=== PATIENT | female | born 1965 | race Caucasian/White ===

== ENCOUNTER → 2018-01-23 | Outpatient (CLI) | payer OTHER ==
--- NOTE | 2018-01-23 12:44 | RADIOLOGY REPORT (SQ) ---
EXAM DESCRIPTION: SHOULDER LEFT 2 OR MORE VIEWS COMPLETED DATE/TIME: 01/23/2018 12:34 pm REASON FOR STUDY: PAIN OF LEFT SHOULDER JOINT ON MOVEMENT COMPARISON: None. NUMBER OF VIEWS: Two views TECHNIQUE: AP and Y view images acquired of the left shoulder. LIMITATIONS: None. FINDINGS: MINERALIZATION: Normal. BONES: No acute fracture or dislocation. No worrisome bone lesions. JOINTS: No dislocation. VISUALIZED LUNGS AND RIBS: No pneumothorax. No rib fracture. SOFT TISSUES: No radiopaque foreign body. OTHER: No other significant finding. IMPRESSION: NEGATIVE STUDY OF THE LEFT SHOULDER. NO RADIOGRAPHIC EVIDENCE OF ACUTE INJURY. TECHNICAL DOCUMENTATION: JOB ID: [id number] [employer]- All Rights Reserved Reading location - IP/workstation name: [email or web address]
== END ==
LOC: OD 12:18
PROVIDERS: ATTEND Family Medicine
DX: M25.512 Pain in left shoulder (principal)

== ENCOUNTER 2018-03-15 16:40 | Emergency (ER) | payer OTHER ==
--- NOTE | 2018-03-15 17:05 | RADIOLOGY REPORT (SQ) ---
EXAM DESCRIPTION: FINGER RIGHT COMPLETED DATE/TIME: 03/15/2018 4:53 pm REASON FOR STUDY: finger injury COMPARISON: None. NUMBER OF VIEWS: Three views. TECHNIQUE: AP, lateral, and oblique images acquired of the right fifth finger. LIMITATIONS: None. FINDINGS: MINERALIZATION: Normal. BONES: PIP dislocation. Middle phalanx dorsal to the proximal phalanx. No obvious fracture. SOFT TISSUES: No soft tissue swelling. No foreign body. OTHER: No other significant finding. IMPRESSION: 5th digit PIP dislocation. COMMENT: SITE OF TRAUMA/COMPLAINT MARKED/STAMP COMPLETED: YES. TECHNICAL DOCUMENTATION: JOB ID: [id number] [employer]- All Rights Reserved Reading location - IP/workstation name: [email or web address]
--- NOTE | 2018-03-15 17:44 | ER Document Report ---
HPI - HPI Patient complains to provider of: right finger pain Time Seen by Provider: 03/15/18 17:36 Onset: This afternoon Onset/Duration: Sudden, Persistent Quality of pain: No pain - Numb Pain Level: 3 Context: Patient presents emergency department with complaints of right finger dislocation. Patient reports she was walking looking at her cell phone when she tripped and fell on her finger. She reports the finger is numb. Reports never happened before. No other complaints such as fever nausea vomiting diarrhea. Associated Symptoms: None Exacerbated by: Denies Relieved by: Denies Similar symptoms previously: No Recently seen / treated by doctor: No Past Medical History - General Information source: Patient - Social History Smoking Status: Unknown if Ever Smoked Cigarette use (# per day): No Frequency of alcohol use: Social Drug Abuse: None Occupation: unemployed Lives with: Family Family History: None Patient has suicidal ideation: No Patient has homicidal ideation: No - Past Medical History Cardiac Medical History: Reports: Hx Coronary Artery Disease Endocrine Medical History: Reports: Hx Hypothyroidism Malignancy Medical History: Reports: Other - hodgkins lymphoma Past Surgical History: Reports: Hx Cardiac Surgery Vertical Provider Document - CONSTITUTIONAL Agree With Documented VS: Yes Exam Limitations: No Limitations General Appearance: WD/WN, No Apparent Distress - INFECTION CONTROL TRAVEL OUTSIDE OF THE [place] IN LAST 30 DAYS: No - HEENT HEENT: Atraumatic, Normocephalic - NECK Neck: Supple - RESPIRATORY Respiratory: No Respiratory Distress - CARDIOVASCULAR Cardiovascular: Regular Rate - MUSCULOSKELETAL/EXTREMETIES Musculoskeletal/Extremeties: Non-Tender - right 5th finger with dislocation at pip, good cap refill, pt reports numb, no pain - NEURO Level of Consciousness: Awake, Alert, Appropriate - DERM Integumentary: Warm, Dry Course - Re-evaluation Re-evalutation: 03/15/18 18:06 Positive dislocation right fifth PIP patient up dated on plan of care verbalized understanding 03/15/18 19:08 TRADITIONAL WEB SPACE DIGITAL BLOCK COMPLETED 5TH FINGER HYPEREXTENDED, REDUCED , SPLINT PLACED, XRAY ORDED, PT TOLERATED PROCEDURE WELL, GOOD CAP REFILL 03/15/18 19:44 Repeat x-ray shows smaller bony fragments with reduction of dislocation. Patient given copy of x-ray. Finger splint in place. Patient instructed to follow-up with Dr. Solo anna on Sunday. She verbalized understanding tall instructions. - Vital Signs Vital signs: Temp Pulse Resp BP Pulse Ox 97.6 F 70 16 124/68 98 03/15/18 16:44 03/15/18 16:44 03/15/18 16:44 03/15/18 16:44 03/15/18 16:44 - Diagnostic Test Radiology reviewed: Image reviewed, Reports reviewed - EXAM DESCRIPTION: FINGER RIGHT COMPLETED DATE/TIME: 03/15/2018 4:53 pm REASON FOR STUDY: finger injury COMPARISON: None. NUMBER OF VIEWS: Three views. TECHNIQUE: AP, lateral, and oblique images acquired of the right fifth finger. LIMITATIONS: None. FINDINGS: MINERALIZATION: Normal. BONES: PIP dislocation. Middle phalanx dorsal to the proximal phalanx. No obvious fracture. SOFT TISSUES: No soft tissue swelling. No foreign body. OTHER: No other significant finding. IMPRESSION: 5th digit PIP dislocation. Discharge - Discharge Clinical Impression: right 5th finger dislocation Condition: Stable Disposition: HOME, SELF-CARE Instructions: Finger Dislocation ([facility]) Additional Instructions: *You have been evaluated for finger dislocation *Maintain the splint for at least five days *Rest/Ice/Elevate *Follow up with orthopedics Sunday for recheck *Take tylenol or motrin as indicated for pain *Return to ED for worsening condition, changes, needs Referrals: JENNIFER PORTER MD [Primary Care Provider] - Follow up in 1 week SOLO ANNA DO [ACTIVE STAFF] - 03/18/18 (call for appointment)
[2018-03-15] MEDS ORDERED: BUPIVACAINE HCL 0.25 % INJ/PF (2.5 MG/1 ML) 30 ML VIAL INJ ONE (17:52)
[2018-03-15] MEDS ORDERED: LIDOCAINE 1% INJ (10 MG/ML) 10 ML MDV INJ ONE ×2 (18:22→18:27)
[2018-03-15] MEDS ORDERED: BUPIVACAINE HCL 0.5 % INJ/PF 30 ML SDV INJ ONE (18:24)
--- NOTE | 2018-03-15 19:27 | RADIOLOGY REPORT (SQ) ---
EXAM DESCRIPTION: FINGER RIGHT COMPLETED DATE/TIME: 03/15/2018 7:17 pm REASON FOR STUDY: DISLOCATED- REDUCED COMPARISON: Exam earlier the same day NUMBER OF VIEWS: Three views. TECHNIQUE: AP, lateral, and oblique images acquired of the right fifth finger. LIMITATIONS: None. FINDINGS: MINERALIZATION: Normal. BONES: Reduction of the previously noted PIP dislocation. Minimal bony fragments at the level of the joint likely related to microfracture. No large fractures. SOFT TISSUES: No soft tissue swelling. No foreign body. OTHER: No other significant finding. IMPRESSION: Reduction of the previously noted dislocation. Minimal bony fragments in relation to th e joint likely related to smaller avulsions. COMMENT: SITE OF TRAUMA/COMPLAINT MARKED/STAMP COMPLETED: Yes TECHNICAL DOCUMENTATION: JOB ID: [id number] [employer]- All Rights Reserved Reading location - IP/workstation name: [email or web address]
[2018-03-15 19:54] VITALS: BP 114/57
== END 2018-03-15 19:54 | disposition home or self-care (01) ==
LOC: ER 16:40
DX: S63.286A Dislocation of proximal interphalangeal joint of right little finger, initial encounter (principal); W19.XXXA Unspecified fall, initial encounter; Y93.01 Activity, walking, marching and hiking; I25.2 Old myocardial infarction
CPT/HCPCS: 99283

== ENCOUNTER → 2019-10-17 | Outpatient (CLI) | payer OTHER ==
[2019-10-17 09:29] LABS: APPEARANCE,URINE CLEAR; BILIRUBIN,URINE NEGATIVE (NEGATIVE); COLOR,URINE COLORLESS; GLUCOSE, URINE NEGATIVE (NEGATIVE); KETONES,URINE NEGATIVE (NEGATIVE); LEUKOCYTE ESTERASE,URINE NEGATIVE (NEGATIVE); NITRITE,URINE NEGATIVE (NEGATIVE); PROTEIN,URINE NEGATIVE (NEGATIVE); URINE SPECIFIC GRAVITY 1.004; UROBILINOGEN,URINE NEGATIVE mg/dL (<2.0)
[2019-10-17 09:49] LABS: ALBUMIN 4.5 g/dL (3.5-5.0); ALKALINE PHOSPHATASE 92 U/L (38-126); ANION GAP 12 (5-19); ASPARTATE AMINO TRANSFERASE 33 U/L (14-36); BILIRUBIN,TOTAL 0.7 mg/dL (0.2-1.3); BLOOD UREA NITROGEN 16 mg/dL (7-20); CALCIUM 9.8 mg/dL (8.4-10.2); CARBON DIOXIDE 23 mmol/L (22-30); CHLORIDE 103 mmol/L (98-107); CHOLESTEROL 120.17 mg/dL (0-200); GLUCOSE 101 mg/dL (75-110); POTASSIUM 4.2 mmol/L (3.6-5.0); TOTAL PROTEIN 7.4 g/dL (6.3-8.2); TRIGLYCERIDES 109 mg/dL (<150)
[2019-10-17 10:00] LABS: DIRECT LDL 49 mg/dL (<100)
== END ==
LOC: OD 08:18
PROVIDERS: ATTEND Family Medicine
DX: A04.8 Other specified bacterial intestinal infections (principal); I25.10 Atherosclerotic heart disease of native coronary artery without angina pectoris; E03.9 Hypothyroidism, unspecified
CPT/HCPCS: 36415; 80053; 80061; 81001; 84443

== ENCOUNTER 2019-11-23 01:58 | Emergency (ER) | payer OTHER ==
[2019-11-23 02:39] LABS: APPEARANCE,URINE SLIGHTLY-CLOUDY; BILIRUBIN,URINE NEGATIVE (NEGATIVE); COLOR,URINE RED; GLUCOSE, URINE NEGATIVE (NEGATIVE); KETONES,URINE NEGATIVE (NEGATIVE); LEUKOCYTE ESTERASE,URINE MODERATE (NEGATIVE); NITRITE,URINE NEGATIVE (NEGATIVE); PROTEIN,URINE 100 mg/dL (NEGATIVE); URINE SPECIFIC GRAVITY 1.006; UROBILINOGEN,URINE NEGATIVE mg/dL (<2.0)
[2019-11-23] MEDS ORDERED: PHENAZOPYRIDINE HCL 200 MG TABLET PO ONE (04:46)
[2019-11-23] MEDS ORDERED: CEPHALEXIN 500 MG CAPSULE PO ONE (04:46)
--- NOTE | 2019-11-23 04:49 | ER Document Report ---
HPI - HPI Time Seen by Provider: 11/23/19 04:46 Pain Level: 2 Context: Patient is a 54-year-old female that comes emergency department for chief complaint of frequent urination during the day and then she started having painful urination with tinges of blood tonight. She states that she has had many bladder infections in the past and this feels the same. She denies abdominal pain, flank pain, fever, vomiting, or any other complaints. She is not on any current antibiotics. Past Medical History - General Information source: Patient - Social History Smoking Status: Never Smoker Frequency of alcohol use: None Drug Abuse: None Lives with: Family Family History: None - Past Medical History Cardiac Medical History: Reports: Hx Coronary Artery Disease Endocrine Medical History: Reports: Hx Hypothyroidism Renal/ Medical History: Denies: Hx Peritoneal Dialysis Malignancy Medical History: Reports: Hx Breast Cancer Past Surgical History: Reports: Hx Cardiac Catheterization, Hx Cardiac Surgery - CABG - Immunizations Hx Diphtheria, Pertussis, Tetanus Vaccination: Yes Vertical Provider Document - CONSTITUTIONAL General Appearance: WD/WN, No Apparent Distress - INFECTION CONTROL TRAVEL OUTSIDE OF THE [place] IN LAST 30 DAYS: No - HEENT HEENT: Atraumatic, Normocephalic - NECK Neck: Normal Inspection - RESPIRATORY Respiratory: Breath Sounds Normal, No Respiratory Distress - CARDIOVASCULAR Cardiovascular: Regular Rate, Regular Rhythm - GI/ABDOMEN Gastrointestinal: Abdomen Soft, Abdomen Non-Tender - BACK Back: Normal Inspection - MUSCULOSKELETAL/EXTREMETIES Musculoskeletal/Extremeties: MAEW, FROM, Non-Tender - NEURO Level of Consciousness: Awake, Alert, Appropriate Motor/Sensory: No Motor Deficit, No Sensory Deficit - DERM Integumentary: Warm, Dry, No Rash Course - Re-evaluation Re-evalutation: Patient with dysuria but no other symptoms, patient with nontender abdomen, no flank pain, no fever, she is calm and well-appearing. Patient will be treated for cystitis, discussed follow-up and return precautions. Patient states understanding and agreement. - Vital Signs Vital signs: Temp Pulse Resp BP Pulse Ox 97.7 F 79 16 145/73 H 98 11/23/19 02:09 11/23/19 02:09 11/23/19 02:09 11/23/19 02:09 11/23/19 02:09 - Laboratory Laboratory results interpreted by me: 11/23/19 02:25 Urine Protein 100 H Urine Blood LARGE H Ur Leukocyte Esterase MODERATE H Discharge - Discharge Clinical Impression: Dysuria Urinary tract infection Qualifiers: Urinary tract infection type: site unspecified Hematuria presence: with hematuria Qualified Code(s): N39.0 - Urinary tract infection, site not specified Condition: Stable Disposition: HOME, SELF-CARE Additional Instructions: Your evaluation symptoms are most consistent with cystitis, bladder infection. Take the antibiotic as prescribed to completion. Follow-up with primary care for additional management. We have urine culture growing in the lab. Return if you worsen including developing abdominal pain, flank pain, vomiting, fever, or any other concerning or worsening symptoms. Prescriptions: Cephalexin Monohydrate [Keflex 500 mg Capsule] 500 mg PO BID 7 Days #14 capsule Referrals: JENNIFER PORTER MD [Primary Care Provider] - Follow up as needed
[2019-11-23 05:04] VITALS: BP 122/68
== END 2019-11-23 05:00 | disposition home or self-care (01) ==
LOC: ER 01:58
DX: N39.0 Urinary tract infection, site not specified (principal); R30.0 Dysuria; I25.10 Atherosclerotic heart disease of native coronary artery without angina pectoris; Z95.1 Presence of aortocoronary bypass graft
CPT/HCPCS: 99283; 87086; 87088; 81001; J3490; 87186